=== PATIENT | female | born 1970 | race Caucasian/White ===

== ENCOUNTER → 2018-01-25 | Day surgery (SDC) | payer BC ==
[2018-01-25 09:39] VITALS: RESP 12
[2018-01-25 10:55] VITALS: BP 144/83; PULSE 60; TEMP 98.5
--- NOTE | 2018-01-25 16:41 | MM ---
EXAMINATION TYPE: MG stereo VAD BX LT DATE OF EXAM: 01/25/2018 COMPARISON: Mammograms 01/10/2018 CLINICAL HISTORY: Abnormal mammogram, calcifications TECHNIQUE: Stereotactic guided core biopsy of left breast. FINDINGS: The procedure of stereotactic guided core biopsy was explained to the patient. Benefits, alternatives, and risks were discussed. All questions were answered. An informed consent was then obtained. A timeout was performed. The shortness pathway for biopsy was chosen. Shortness pathway was craniocaudal approach. Targeting was provided by radiology. Procedure was performed by radiology. Given the close proximity of the calcifications towards the skin surface the petechial needle was chosen for the biopsy device. Calcifications were localized stereotactic core targeting was performed. Skin was prepped in the usual manner. The skin and deeper breast tissue was anesthetized with 1% lidocaine with sodium bicarbonate. A small skin steve was placed. The needle was advanced into the skin. The biopsy device was fired. Sheath was still external to the skin. Needle was slowly advanced to place the sheath into the skin. Post fire imaging performed which appear to have the calcifications at the 6:00 position near the posterior margin within the window for biopsy. Depth of calcifications was estimated at 1.5 cm. 4 core samples were obtained and no calcifications are within the sample. Retargeting and reevaluation was performed , four additional samples were obtained. No calcifications within the second sample. Patient had bleeding at this time which was controlled with direct pressure. Procedure was terminated following placement of a core marker at the biopsy site. Unsuccessful acquisition of calcifications was explained to the patient. Patient will follow-up with her surgeon for further discussion and treatment options. Needle localization could be performed. The patient tolerated the procedure well without any immediate complication. Good hemostasis was obtained with direct pressure. Postprocedure mammogram for clip placement was performed. The clip is directly adjacent to the calcifications at the expected biopsy site. IMPRESSION: 1. Unsuccessful stereotactic core biopsy of breast calcifications. Additional follow-up will be required. Recommendations: 1. Evaluation of pathology results. Negative pathology should not preclude reattempting biopsy of the calcifications. This could be performed with needle localization. Inadequate Specimen LEFT BREAST, NEEDLE CORE BIOPSIES: Benign breast parenchymal focal fibrocystic changes (stromal sclerosis with duct cystic changes) and a single fragment of benign skin. The majority of the specimen volume is occupied by unremarkable adipose tissue with congestion and hemorrhage. Recommendation Surgical consult. Repeat biopsy or surgical excision recommended. Initial stereotactic core biopsy unsuccessful. [facility]
== END | disposition home or self-care (01) ==
LOC: RADMAMWWP 09:18
PROVIDERS: ATTEND Surgery
DX: N60.32 Fibrosclerosis of left breast (principal); R92.1 Mammographic calcification found on diagnostic imaging of breast
CPT/HCPCS: 88305; 19081; A4648; J2001

== ENCOUNTER → 2021-04-08 | Outpatient (CLI) | payer OTHER ==
--- NOTE | 2021-04-12 11:08 | MM ---
Reason for exam: screening (asymptomatic). Last mammogram was performed 3 years and 3 months ago. History: Patient is nulliparous. MG stereo VAD BX LT of the left breast, January 25, 2018. Physical Findings: A clinical breast exam by your physician is recommended on an annual basis and results should be correlated with mammographic findings. MG Screening Mammo w CAD Bilateral CC, MLO, and XCCL view(s) were taken. Prior study comparison: January 10, 2018, left breast MG work up mamm w CAD LT. January 10, 2018, bilateral MG screening mammo w CAD. The breast tissue is heterogeneously dense. This may lower the sensitivity of mammography. Finding: There are grouped/clustered calcifications in the upper outer quadrant, anterior, subareolar position of the left breast. No significant changes in finding since January 10, 2018. ASSESSMENT: Benign, BI-RAD 2 RECOMMENDATION: Routine screening mammogram of both breasts in 1 year.
== END | disposition home or self-care (01) ==
LOC: RADMAMWWP 07:48
PROVIDERS: ATTEND Obstetrics & Gynecology
DX: Z12.31 Encounter for screening mammogram for malignant neoplasm of breast (principal)
CPT/HCPCS: 77067

== ENCOUNTER → 2022-05-05 | Outpatient (CLI) | payer OTHER ==
--- NOTE | 2022-05-05 11:12 | BD ---
EXAMINATION TYPE: Axial Bone Density DATE OF EXAM: 05/05/2022 CLINICAL HISTORY: 51 years old Female. ICD-10 CODE: N95.1 POST MENOPAUSAL SYMPTOMS Height: 65.5in Weight: 204lb FRAX RISK QUESTIONS: Secondary Osteoporosis: RISK FACTORS HISTORY OF: Active: yes Postmenopausal woman: no If Premenopausal, do you have irregular periods: yes MEDICATIONS: Additional Medications: no current meds or vitamins Additional History: EXAM MEASUREMENTS: Bone mineral densitometry was performed using the [employer]. Bone mineral density as measured about the Lumbar spine is: ----- L1-L4(G/cm2): 1.292 T Score Values are as follows: ----- L1: 0.8 ----- L2: 1.1 ----- L3: 0.9 ----- L4: 0.8 ----- L1-L4: 0.9 Z Score Values are as follows: ----- L1: 0.4 ----- L2: 0.8 ----- L3: 0.6 ----- L4: 0.5 ----- L1-L4: 0.6 First dexa at [facility] Bone mineral density about the R hip (g/cm2): 1.127 Bone mineral density about the L hip (g/cm2): 1.177 T Score values are as follows: -----R Neck: -0.4 -----L Neck: 0.1 -----R Total: 0.9 -----L Total: 1.3 Z Score values are as follows: -----R Neck: -0.1 -----L Neck: 0.4 -----R Total: 0.8 -----L Total: 1.2 FRAX%s: The graph provided illustrates a 4.1% chance for a major osteoporotic fx and a 0.1% chance fo r the hips probability for fx in 10 years time. IMPRESSION: Normal (Values between +1 and -1 indicate normal bone mass). Consider repeating this study in 5 year s or sooner if there is some new clinical indication. NOTE: T-SCORE=SD OF THE YOUNG ADULT MEAN.
--- NOTE | 2022-05-08 10:57 | MM ---
Reason for Exam: Screening (asymptomatic). Last mammogram was performed 1 year(s) and 1 month(s) ago. Patient History: Menarche at age 12. Patient has no children. Hormonal Contraceptives, from age 18 until age 23. 01/25/2018, Core Biopsy on the Left side. Last menstrual period: 05/03/2022 Risk Values: Rossy 5 year model risk: 1.4%. NCI Lifetime model risk: 11.2%. Prior Study Comparison: 01/10/2018 Bilateral Screening Mammogram, [facility]. 01/10/2018 Left Diagnostic Mammogram, [facility]. 04/08/2021 Bilateral Screening Mammogram, [facility]. Tissue Density: The breast tissue is heterogeneously dense. This may lower the sensitivity of mammography. Findings: Analyzed By CAD. There are scattered and loosely grouped benign-appearing round calcifications redemonstrated throughout the bilateral breasts. Benign-appearing bilateral axillary lymph nodes are again seen. There is no suspicious new group of microcalcifications or new suspicious mass in either breast. Overall Assessment: Benign, BI-RAD 2 Management: Screening Mammogram of both breasts in 1 year. A clinical breast exam by your physician is recommended on an annual basis and results should be correlated with mammographic findings. Electronically signed and approved by: Porfirio Peters M.D.
== END | disposition home or self-care (01) ==
LOC: RADMAMWWP 08:12
PROVIDERS: ATTEND Obstetrics & Gynecology
DX: Z12.31 Encounter for screening mammogram for malignant neoplasm of breast (principal); N95.1 Menopausal and female climacteric states
CPT/HCPCS: 77063; 77067; 77080

== ENCOUNTER → 2024-01-25 | Outpatient (CLI) | payer OTHER ==
[2024-01-25 15:11] LABS: ALT 17 U/L (8-44); AST 18 U/L (13-35)
[2024-01-25 17:09] LABS: Basophils # (A) 0.03 X 10*3/uL (0.00-0.10); Basophils % (A) 0.7 %; Eosinophils % (A) 2.2 %; Lymphocytes # (A) 1.36 X 10*3/uL (0.90-5.00); Lymphocytes % (A) 29.9 %; MCH 29.2 pg (27.0-32.0); MCHC 31.8 g/dL (32.0-37.0); MCV 91.9 FL (80.0-97.0); Mean Platelet Volume 9.7 FL (9.5-12.2); Monocytes # (A) 0.36 X 10*3/uL (0.20-1.00); Monocytes % (A) 7.9 %; NRBC Per 100 WBC 0 X 10*3/uL (0.00-0.01); Neutrophils # (A) 2.69 X 10*3/uL (1.80-7.70); Neutrophils % (A) 59.1 %; Platelet Count 242 X 10*3/uL (140-440); RBC 4.79 X 10*6/uL (4.10-5.20); RDW 13.1 % (11.5-14.5); WBC 4.55 X 10*3/uL (4.50-10.00)
== END | disposition home or self-care (01) ==
LOC: LABWHC1 09:36
PROVIDERS: ATTEND Dermatology
DX: B35.1 Tinea unguium (principal); Z79.899 Other long term (current) drug therapy
CPT/HCPCS: 36415; 84450; 84460; 85025